=== PATIENT | male | born 1955 | race African-American/Black ===

== ENCOUNTER 2018-03-10 13:33 | Emergency (ER) | payer MEDICARE ==
[2018-03-10 14:11] LABS: #Basophils 0.1 thou/uL (0.0-0.2); #Eosinphils 0.1 thou/uL (0.0-0.7); #Lymphocytes 1.8 thou/uL (1.20-3.40); #Monocytes 0.4 thou/uL (0.11-0.59); #Neutrophils 2.7 thou/uL (1.40-6.50); %Basophils 1.3 % (0.0-1.0); %Eosinophils 1.4 % (0.0-10.0); %Lymphocytes 35.5 % (21.0-51.0); %Monocytes 7.1 % (0.0-10.0); %Neutrophils 54.7 % (42.0-75.0); Hemoglobin 12.7 g/dL (14.0-18.0); Mean Corpuscular HGB CONC 32.5 g/dL (32.0-36.0); Mean Corpuscular Hemoglobin 29.7 pg (27.0-31.0); Mean Corpuscular Volume 91.3 fL (78.0-98.0); Mean Platelet Volume 8.3 fL (7.4-10.4); Platelet Count 270 thou/uL (130-400); Red Blood Cell (RBC) Count 4.28 mill/uL (4.70-6.10); White Blood Cell (WBC) Count 4.9 thou/uL (4.8-10.8)
[2018-03-10 14:17] LABS: INR-International Normal Ratio 1.1; Prothrombin Time 14.3 SEC (12.0-14.7)
[2018-03-10 14:18] LABS: PTT 39.8 SEC (22.9-36.1)
[2018-03-10] MEDS ORDERED: Clopidogrel Bisulfate 75 MG TAB ONE (14:22)
[2018-03-10 14:25] LABS: ALT (SGPT) 17 U/L (8-55); AST (SGOT) 19 U/L (5-34); Albumin 4.3 g/dL (3.4-4.8); Alkaline Phosphatase 113 U/L (40-150); Anion Gap 13 mmol/L (10-20); BUN (Urea Nitrogen) 12 mg/dL (8.4-25.7); Bilirubin, Total 0.5 mg/dL (0.2-1.2); CK (CPK) 426 U/L (30-200); Calc. Creatinine Clearance 0 mL/min (70-130); Calcium 9.9 mg/dL (7.8-10.44); Carbon Dioxide 23 mmol/L (23-31); Chloride 105 mmol/L (98-107); Estimated GFR-MDRD Greater than 90; Globulin 2.9 g/dL (2.4-3.5); Glucose 97 mg/dL (80-115); Protein, Total 7.2 g/dL (5.8-8.1); Sodium 137 mmol/L (136-145)
--- NOTE | 2018-03-10 15:36 | CT ---
CT BRAIN WITHOUT CONTRAST: 03/10/18 HISTORY: Emergency exam. COMPARISON: None. FINDINGS: No acute hemorrhage or infarct. No midline shift or mass effect. Ventricular sizes and extra-axial CS F spaces are normal. The calvarium is intact. No acute hemorrhage or infarct. IMPRESSION: No acute intracranial abnormality. Code CR. The technologist notified of the findings by telephone at 1:50 p.m. POS: MAT
== END 2018-03-10 14:34 | disposition short-term general hospital (02) ==
LOC: NAV ERS 13:33
DX: I63.9 Cerebral infarction, unspecified (principal); I10 Essential (primary) hypertension; H54.7 Unspecified visual loss; M06.9 Rheumatoid arthritis, unspecified; F17.210 Nicotine dependence, cigarettes, uncomplicated; Z79.899 Other long term (current) drug therapy
CPT/HCPCS: 36416; 70450; 80053; 82550; 84484; 85025; 85610; 85730; 93005

== ENCOUNTER 2023-05-20 20:00 | Emergency (ER) | payer MEDICARE ==
[2023-05-20] MEDS ORDERED: Sodium Chloride 0.9% 1,000 ML ONE (20:56)
[2023-05-20] MEDS ORDERED: Ondansetron PF 4 MG/2 ML Vial ONE (20:56)
[2023-05-20 20:57] LABS: #Lymphocytes 0.1 thou/uL (1.20-3.40); #Neutrophils 4.8 thou/uL (1.40-6.50); %Basophils 0.3 % (0.0-1.0); %Lymphocytes 2.7 % (21.0-51.0); %Monocytes 0.8 % (0.0-10.0); %Neutrophils 96.2 % (42.0-75.0); Hematocrit 37.5 % (42.0-52.0); Hemoglobin 12.4 g/dL (14.0-18.0); Mean Corpuscular Volume 93.9 fl (78.0-98.0); Mean Platelet Volume 7.9 fL (7.4-10.4); Platelet Count 192 10x3/uL (130-400); RBC Distribution Width 12.8 % (11.5-14.5)
[2023-05-20] MEDS ORDERED: Acetaminophen 500 MG TAB ONE (21:04)
[2023-05-20 21:12] LABS: ALT (SGPT) 17 U/L (8-55); AST (SGOT) 17 U/L (5-34); Albumin 4.3 g/dL (3.4-4.8); Alkaline Phosphatase 104 U/L (40-110); Anion Gap 14 mmol/L (10-20); BUN (Urea Nitrogen) 15 mg/dL (8.4-25.7); Calc. Creatinine Clearance 0 mL/min (70-130); Calcium 9.6 mg/dL (7.8-10.44); Carbon Dioxide 21 mmol/L (23-31); Chloride 105 mmol/L (98-107); Estimated GFR 77; Globulin 3.1 g/dL (2.4-3.5); Glucose 73 mg/dL (80-115); Potassium 4.1 mmol/L (3.5-5.1); Protein, Total 7.4 g/dL (5.8-8.1); Sodium 136 mmol/L (136-145)
[2023-05-20 21:15] LABS: Bilirubin Negative (Negative); Blood, Urine Large (Negative); Glucose, Urine (Dipstick) Negative (Negative); Ketone, Urine Negative (Negative); Leukocyte Moderate (Negative); Nitrite Negative (Negative); Protein, Urine (Dipstick) Negative (Neg-Trace); Specific Gravity, Urine 1.015 (1.005-1.030); Urobilinogen 0.2 mg/dL (Less than 2); pH, Urine 5.5 (5.0-9.0)
[2023-05-20 21:16] LABS: Bacteria/HPF 1+ HPF (None Seen); CAUTI Indications for Culture Fever or rigors; Clarity Hazy (Clear); Squamous Epithelial 0-3 HPF (0-3); WBC/HPF 21-50 HPF (0-3)
[2023-05-20 21:17] LABS: Urine Culture Reflex Yes Yes
[2023-05-20 21:21] LABS: Bicarbonate (HCO3v) 21.9 mmol/L (22.0-28.0); CO2 Tension (PvCO2) 33.9 mmHg (42.0-51.0); vO2 Saturation-calc 85.3 % (60.0-85.0)
[2023-05-20 21:22] LABS: Chloride 105 mmol/L (98-107); Sodium 138 mmol/L (138-145); T. Carbon Dioxide 22.9 mmol/L (22.0-28.0)
[2023-05-20 21:43] LABS: Influenza A by NAA Not Detected (NotDetected); Influenza B by NAA Not Detected (NotDetected); SARS-CoV-2 NAA Rapid Test Not Detected (NotDetected)
[2023-05-20] MEDS ORDERED: cefTRIAXone (ROCEPHIN) 1 GM VIAL ONE (21:51)
== END 2023-05-21 01:17 | disposition home or self-care (01) ==
LOC: NAV ERS 20:00
DX: N39.0 Urinary tract infection, site not specified (principal); E86.0 Dehydration; F17.210 Nicotine dependence, cigarettes, uncomplicated; I10 Essential (primary) hypertension
CPT/HCPCS: 0240U; 71045; 80053; 81001; 82330; 82435; 82803; 83605; 84132; 84295; 85014; 85025; 87040; 87077; 87086; 87186; 99283; 36415; J0696; J2405; J7050